=== PATIENT | male | born 1945 | race Caucasian/White ===

== ENCOUNTER 2017-02-26 09:53 | Day surgery (SDC) | payer MEDICARE ==
[~2017-02-26] VITALS: Ht 172.7 cm; Wt 82.3 kg
[~2017-02-26 09:53] MED LIST: AMLO-511 PO; ATOR10TA84 PO; CANA300T PO; DORZ210OS OU; GLIP5 PO; INSLAN SQ; METF500T4 PO; NIFE30TA5 PO; TIMO.25OS OU; TRAVZOS OU; VALS160T2 PO
[2017-02-26] MEDS ORDERED: DICLOFENAC SODIUM 0.1% 2.5 ML OPHTHALMIC SOLUTION ONE (10:43)
[2017-02-26] MEDS ORDERED: TETRACAINE HCL/PF 0.5% 4 ML OPHTHALMIC SOLUTION ONE (10:43)
[2017-02-26] MEDS ORDERED: MOXIFLOXACIN HCL 0.5% 3 ML OPHTHALMIC SOLUTION ONE (10:43)
[2017-02-26] MEDS ORDERED: PHENYLEPHRINE HCL 2.5% 2 ML OPHTHALMIC SOLUTION ONE (10:43)
[2017-02-26] MEDS ORDERED: RINGERS SOLUTION,LACTATED 500 ML IV ONE ×2 (10:43→11:30)
[2017-02-26] MEDS ORDERED: CYCLOPENTOLATE HCL 2% 2 ML OPHTHALMIC SOLUTION ONE (10:43)
[2017-02-26] MEDS: MOXIFLOXACIN HCL 0.5% 3 ML OPHTHALMIC SOLUTION OD SCH ×3 (11:13→11:35)
[2017-02-26] MEDS: CYCLOPENTOLATE HCL 2% 2 ML OPHTHALMIC SOLUTION OD SCH ×3 (11:13→11:26)
[2017-02-26] MEDS: DICLOFENAC SODIUM 0.1% 2.5 ML OPHTHALMIC SOLUTION OD SCH ×3 (11:13→11:35)
[2017-02-26] MEDS: PHENYLEPHRINE HCL 2.5% 2 ML OPHTHALMIC SOLUTION OD SCH ×3 (11:13→11:27)
[2017-02-26] MEDS ORDERED: FentaNYL CITRATE-PF 100 MCG/2 ML VIAL IVP ONE (12:00)
[2017-02-26] MEDS ORDERED: MIDAZOLAM HCL 2 MG/2 ML VIAL IVP ONE (12:00)
[2017-02-26] MEDS ORDERED: ACETAMINOPHEN/CODEINE 300-30 MG TABLET PO PRN (12:45)
[2017-02-26] MEDS ORDERED: TETRACAINE HCL/PF 0.5% 4 ML OPHTHALMIC SOLUTION OD ONE (12:45)
[2017-02-26 13:12] LABS: GLUCOSE,POINT OF CARE 201 MG/DL (70-110)
[2017-02-26] MEDS ORDERED: AcetaZOLAMIDE 250 MG TABLET ONE (14:13)
[2017-02-26] MEDS ORDERED: AcetaZOLAMIDE 250 MG TABLET PO ONE (14:45)
[2017-02-26] MEDS ORDERED: POVIDONE-IODINE 10% 15 ML SOLUTION UD TP ONE (17:32)
[2017-02-26] MEDS ORDERED: TETRACAINE HCL VISCOUS 0.5% 5 ML OPHTHALMIC SOLUTION OS ONE (17:32)
[2017-02-26] MEDS ORDERED: EPINEPHrine 1:1,000 [1 MG/ML] AMP IM ONE (17:32)
[2017-02-26] MEDS ORDERED: BRIMONIDINE TARTRATE 0.15% 5 ML OPHTHALMIC SOLUTION OS ONE (17:32)
[2017-02-26] MEDS ORDERED: HYALURONATE SOD/CHONDROITIN SOD 0.5 ML VIAL IO ONE (17:32)
[2017-02-26] MEDS ORDERED: ACETYLCHOLINE CHLORIDE 1 EA INTRAOCULAR SOLUTION KIT IO ONE (17:32)
[2017-02-26] MEDS ORDERED: HYALURONATE SODIUM 12 MG/ML 0.8 ML SYRINGE IO ONE (17:32)
[2017-02-26] MEDS ORDERED: LIDOCAINE HCL/PF 1% 2 ML VIAL IM ONE (17:32)
== END 2017-02-26 14:40 | disposition home or self-care (01) ==
LOC: SURGERY 09:53
PROVIDERS: ATTEND Ophthalmology
DX: E11.36 Type 2 diabetes mellitus with diabetic cataract (principal); H25.11 Age-related nuclear cataract, right eye; E11.39 Type 2 diabetes mellitus with other diabetic ophthalmic complication; H40.9 Unspecified glaucoma; M54.9 Dorsalgia, unspecified; M54.30 Sciatica, unspecified side; I10 Essential (primary) hypertension; E66.01 Morbid (severe) obesity due to excess calories; M19.90 Unspecified osteoarthritis, unspecified site
CPT/HCPCS: 66183; 66984; 82962; 93005; C1780; C1783; J0171; J2250; J3010; J3490 ×2; J7120